=== PATIENT | male | born 1985 | race African-American/Black ===

== ENCOUNTER 2024-01-23 13:59 | Emergency (ER) | payer OTHER ==
[~2024-01-23] VITALS: Ht 185.4 cm; Wt 91.2 kg
[2024-01-23 14:41] VITALS: TEMP 97.8
[2024-01-23 17:00] VITALS: BP 138/89; PULSE 74; RESP 18
[2024-01-23] MEDS: ACETAMINOPHEN/CODEINE 300-30 MG TABLET PO ONE (17:45)
[2024-01-23] MEDS: IBUPROFEN 600 MG TABLET PO ONE (17:46)
== END 2024-01-23 18:30 | disposition home or self-care (01) ==
LOC: EMS 14:12
DX: S63.293A Dislocation of distal interphalangeal joint of left middle finger, initial encounter (principal); W21.07XA Struck by softball, initial encounter; Y93.64 Activity, baseball; Y92.89 Other specified places as the place of occurrence of the external cause; Y99.8 Other external cause status
CPT/HCPCS: 26770; 99284; 73130-TC; Z7502; Z7610